=== PATIENT | female | born 1990 | race Hispanic/Latino ===

== ENCOUNTER 2017-11-18 02:40 | Inpatient (IN) | payer BC, OTHER ==
--- NOTE | 2017-11-18 02:50 | ED PDOC ---
Arrival/HPI - General Time Seen by Provider: 11/18/17 02:42 Historian: Patient, Parent - History of Present Illness Narrative History of Present Illness (Text): 11/18/17 02:50 Nicol Zamora is 27 year old female who presents to the ED brought in by elizabeth santoyo for possible overdose. Mother states she noted patient to be inebriated and may have possibly overdose on her boyfriend's Flexeril, but is unsure how many were taken by the patient. Patient states she "took a couple" because she wanted to sleep but would not elaborate further. According to collateral information obtained from mother, patient had a recent miscarriage, from her boyfriend, and has been seemingly depressed. Unknown if patient had any suicidal ideation. Limited HPI and ROS secondary to patient's altered mental status. Symptom Onset: Gradual Symptom Course: Unchanged Activities at Onset: Light Context: Home Past Medical History - Provider Review Nursing Documentation Reviewed: Yes Family/Social History - Physician Review Nursing Documentation Reviewed: Yes Family/Social History: Unknown Family HX Allergies/Home Meds Allergies/Adverse Reactions: Allergies No Known Allergies Allergy (Unverified 11/18/17 03:12) Home Medications: Home Meds Medication Instructions Recorded Confirmed Albuterol HFA [Ventolin HFA 90 1 puff INH PRN PRN 11/18/17 11/18/17 mcg/actuation (8 g)] Amphetamine Salt Combination 5 mg PO DAILY 11/18/17 11/18/17 [Adderall] Review of Systems - Review of Systems Systems not reviewed;Unavailable: Altered Mental Status Physical Exam Vital Signs Reviewed: Yes Temperature: Afebrile Blood Pressure: Normal Pulse: Regular Respiratory Rate: Normal Appearance: Positive for: Well-Appearing, Non-Toxic, Comfortable Pain Distress: None Mental Status: Positive for: other (Drowsy at times but easily arousable) - Systems Exam Head: Present: Atraumatic, Normocephalic Pupils: Present: PERRL Extroacular Muscles: Present: EOMI Conjunctiva: Present: Normal Ears: Present: Normal, NORMAL TM, Normal Canal. No: Erythema, TM Bulging, Fluid, TM Perf Mouth: Present: Moist Mucous Membranes Pharnyx: Present: Normal. No: ERYTHEMA, EXUDATE, TONSILS ENLARGED, Peritonsilar Swelling, Uvular Deviation, Muffled/Hoarse Voice, Strider, Soft Palate/Uvular Edema Nose (External): Present: Atraumatic Nose (Internal): Present: Normal Inspection Neck: Present: Normal Range of Motion. No: Meningeal Signs, MIDLINE TENDERNESS, Paraspinal Tenderness Respiratory/Chest: Present: Clear to Auscultation, Good Air Exchange. No: Respiratory Distress, Accessory Muscle Use Cardiovascular: Present: Regular Rate and Rhythm, Normal S1, S2. No: Murmurs Abdomen: No: Tenderness, Distention, Peritoneal Signs Back: Present: Normal Inspection. No: CVA Tenderness, Midline Tenderness, Paraspinal Tenderness Upper Extremity: Present: Normal Inspection. No: Cyanosis, Edema Lower Extremity: Present: Normal Inspection. No: Edema Neurological: Present: GCS=15, CN II-XII Intact, Speech Normal Skin: Present: Warm, Dry, Normal Color. No: Rashes Psychiatric: Present: Alert, Oriented x 3, Normal Insight, Normal Concentration Medical Decision Making ED Course and Treatment: 11/18/17 02:50 Impression: 27 year old female brought in s/p possible overdose and alcohol intoxication. Plan: -- EKG -- CXR -- Labs, alcohol level -- Urine drug screen -- IV fluids -- Reassess and disposition Progress Notes: Poison control contacted by RN, who recommend cardiac monitoring and repeat EKG in 2 hours to observe for QRS widening. Reviewed EKG, NSR at 95 bpm. Anterior infarct. Non-specific ST/T wave changes. 11/18/17 05:08 Case discussed with director of medical staff services long distance billing operator, who is aware and agrees with plan. 11/18/17 05:[address] Adams, who is aware and agrees to evaluate pt for ICU. 11/18/17 05:[address] Adams, present in ED, states pt can be admitted to the ICU. 11/18/17 05:[address] Jackson, covering for Dr. Alexis, who is aware and agrees with plan. Pt will be admitted to ICU for drug overdose and alcohol intoxication under Dr. Alexis's service. - EKG Interpretation Interpreted by ED Physician: Yes Type: 12 lead EKG - Scribe Statement The provider has reviewed the documentation as recorded by the Scribnathanael Mota All medical record entries made by the Scribe were at my direction and personally dictated by me. I have reviewed the chart and agree that the record accurately reflects my personal performance of the history, physical exam, medical decision making, and the department course for this patient. I have also personally directed, reviewed, and agree with the discharge instructions and disposition. Disposition/Present on Arrival - Present on Arrival Any Indicators Present on Arrival: No History of DVT/PE: No History of Uncontrolled Diabetes: No Urinary Catheter: No History of Decub. Ulcer: No History Surgical Site Infection Following: None - Disposition Have Diagnosis and Disposition been Completed?: Yes Diagnosis: Drug overdose, Alcohol intoxication Disposition: HOSPITALIZED Disposition Time: 05:17 Patient Problems: Current Active Problems Problem Status Onset Alcohol intoxication Acute Drug overdose Acute Condition: GUARDED
[2017-11-18] MEDS ORDERED: Sodium Chloride 0.9% 1,000 ML IV STA (03:06)
[2017-11-18 03:12] VITALS: BMI 26.4
[2017-11-18 04:24] LABS: ALB/GLOB RATIO 1.8 (1.1-1.8); ALT/SGPT 129 U/L (7-56); AST/SGOT 72 U/L (14-36); BLOOD UREA NITROGEN 7 mg/dL (7-21); CALCIUM 9.2 mg/dL (8.4-10.5); GFR NON-AFRICAN AMERICAN > 60
[2017-11-18 04:25] LABS: ACETAMINOPHEN < 10.0 ug/ml (10.0-20.0); SALICYLATE < 1 mg/dL (2.0-20.0)
[2017-11-18 05:07] LABS: BASO # 0.02 K/mm3 (0.0-2.0); BASO % 0.3 % (0.0-3.0); EOS % 0.6 % (1.5-5.0); GRAN # 4.14 (1.4-6.5); GRAN % 61.1 % (50.0-68.0); HEMOGLOBIN 13.3 g/dL (12.0-16.0); LYMPH # 2.2 (1.2-3.4); LYMPH % 32.5 % (22.0-35.0); MEAN CELL VOLUME 63.6 fl (80.0-105.0); MONO # 0.4 (0.1-0.6); MONO % 5.5 % (1.0-6.0); PLATELET COUNT 219 10^3/uL (120.0-450.0); RBC 6.34 10^6/uL (3.5-6.1); RED CELL DISTRIBUTION WIDTH 15.2 % (11.5-14.5); WHITE BLOOD COUNT 6.8 10^3/ul (4.5-11.0)
--- NOTE | 2017-11-18 06:26 | CP.PCM.CON ---
<Sima Bean - Last Filed: 11/18/17 07:29> History of Present Illness - History of Present Illness History of Present Illness: Sima Bean, PGY2, ICU Consult Note for Dr Adams: CC: drowsy s/p flexeril overdose 27 year old female with PMH asthma, thalassemia minor, anxiety, was brought into [facility] by mother for possible overdose of flexeril. At time of my exam, patient is drowsy and sleepy, responds to few questions. Most HPI obtained from mother at bedside, ED staff, prior chart review. As per mother, patient recently had a spontaneous 1 month ago, broke up with her boyfriend recently, went into depression. Patient was hanging out with her friends tonight at a [employer], had a lot to drink. Patient then came back home, and was in her room for some time. Patient's friends then found an empty bottle of flexeril next to her bed, and patient was drowsy. No fevers, vomiting, cough, diarrhea, leg swelling. 12 point ROS limited due to AMS. PMH: asthma, thalassemia minor, anxiety PSH: denies NKA FH: Mother, HTN Thalassemia, hemochromatosis (aunt), PCKD (aunt and uncle) SH: Works for [employer]. + ETOH (unknown amount), no smoking/recreational drug use. PMD: Reuben Review of Systems - Review of Systems Systems not reviewed;Unavailable: Altered Mental Status Past Patient History - Past Social History Smoking Status: Never Smoked - PSYCHIATRIC Hx Substance Use: No Meds Allergies/Adverse Reactions: Allergies Allergy/AdvReac Type Severity Reaction Status Date / Time apple Allergy ANGIOEDEMA Verified 11/18/17 19:23 ORANGE Allergy ANGIOEDEMA Verified 11/18/17 19:23 peach Allergy ANGIOEDEMA Verified 11/18/17 19:23 - Medications Medications: Current Medications Potassium Chloride (Potassium Chloride 10 Meq/100 Ml) 10 meq in 100 mls @ 50 mls/hr IVPB Q2H ENEDINA Stop: 11/18/17 10:14 Sodium Chloride (Sodium Chloride 0.9%) 1,000 mls @ 100 mls/hr IV .Q10H ENEDINA Physical Exam - Constitutional Additional comments: drowsy, sleepy - Head Exam Head Exam: ATRAUMATIC, NORMOCEPHALIC - Eye Exam Eye Exam: PERRL. absent: Conjunctival injection, Nystagmus, Scleral icterus Pupil Exam: PERRL. absent: Fixed, Irregular, Miosis, Mydriatic, Unequal Additional comments: patient uncooperative with exam - ENT Exam ENT Exam: Mucous Membranes Moist - Neck Exam Neck exam: Positive for: Full Rom - Respiratory Exam Respiratory Exam: Clear to Auscultation Bilateral, NORMAL BREATHING PATTERN. absent: Accessory Muscle Use, Rales, Rhonchi, Wheezes, Respiratory Distress, Stridor - Cardiovascular Exam Cardiovascular Exam: RRR, +S1, +S2. absent: Systolic Murmur - GI/Abdominal Exam GI & Abdominal Exam: Normal Bowel Sounds, Soft. absent: Distended, Firm, Guarding, Mass, Organomegaly, Rebound, Rigid, Tenderness - Extremities Exam Extremities exam: Positive for: normal inspection. Negative for: calf tenderness, pedal edema - Back Exam Back exam: NORMAL INSPECTION - Neurological Exam Neurological exam: Altered, Reflexes Normal Additional comments: drowsy, patient uncooperative with exam - Skin Skin Exam: Normal Color, Warm Results - Vital Signs Recent Vital Signs: Last Vital Signs Temp 98.2 F 11/18/17 03:00 Pulse 92 H 11/18/17 05:57 Resp 18 11/18/17 05:57 BP 109/61 11/18/17 05:57 Pulse Ox 97 11/18/17 05:57 - Labs Result Diagrams: 11/18/17 03:30 11/18/17 03:30 Labs: Laboratory Results - last 24 hr 11/18/17 11/18/17 11/18/17 03:30 03:30 03:30 WBC 6.8 RBC 6.34 H Hgb 13.3 Hct 40.3 MCV 63.6 L MCH 21.0 L MCHC 33.0 RDW 15.2 H Plt Count 219 Gran % 61.1 Lymph % (Auto) 32.5 Dougherty % (Auto) 5.5 Eos % (Auto) 0.6 L Baso % (Auto) 0.3 Gran # 4.14 Lymph # (Auto) 2.2 Dougherty # (Auto) 0.4 Eos # (Auto) 0.0 Baso # (Auto) 0.02 Sodium 142 Potassium 3.4 L Chloride 104 Carbon Dioxide 21 Anion Gap 20 BUN 7 Creatinine 0.7 Est GFR ( Amer) > 60 Est GFR (Non-Af Amer) > 60 Random Glucose 85 Calcium 9.2 Total Bilirubin 0.9 AST 72 H ALT 129 H Alkaline Phosphatase 78 Total Protein 7.8 Albumin 5.0 H Globulin 2.8 Albumin/Globulin Ratio 1.8 Beta HCG, Quant Salicylates < 1 L Acetaminophen < 10.0 L Alcohol, Quantitative 11/18/17 11/18/17 03:30 03:30 WBC RBC Hgb Hct MCV MCH MCHC RDW Plt Count Gran % Lymph % (Auto) Dougherty % (Auto) Eos % (Auto) Baso % (Auto) Gran # Lymph # (Auto) Dougherty # (Auto) Eos # (Auto) Baso # (Auto) Sodium Potassium Chloride Carbon Dioxide Anion Gap BUN Creatinine Est GFR ( Amer) Est GFR (Non-Af Amer) Random Glucose Calcium Total Bilirubin AST ALT Alkaline Phosphatase Total Protein Albumin Globulin Albumin/Globulin Ratio Beta HCG, Quant 88.39 H Salicylates Acetaminophen Alcohol, Quantitative 179 H Assessment & Plan - Assessment and Plan (Free Text) Assessment: 27 year old female with no significant PMH, presents s/p flexeril overdose: Neuro: - drowsy, answers few questions. - Neuro checks, seizure precautions, aspiration precautions - ETOH level elevated, negative for tylenol/salicylates - CIWA protocol. Currently agitated. Can initiate ativan once patient awake. - UDS ordered - Poison control contacted, wants EKG done q4 hours x1 (watch for QRS widening), telemetry monitoring. - Psych consulted. F/u recs. - 1:1 sitter - Monitor - avoid sedatives Resp: - On RA. Maintain sats>96%. - Hx of asthma. Duonebs prn. Cardio: - HR 90s, BP 109/61 - Received 1 L NS bolus in ED - NS@100 GI: NPO. Protonix daily. Elevated LFTs. likely alcohol induced. Renal: BUN/Cr 7/0.7. Hypokalemic 3.4, repleted. Maintain euvolemia, replace lytes. ID: afebrile, no leukocytosis. monitor. PPX: Protonix, SCDs Case discussed with Dr Adams. <Mingo Adams - Last Filed: 11/18/17 21:22> Meds - Medications Medications: Current Medications Albuterol/Ipratropium (Duoneb 3 Mg/0.5 Mg (3 Ml) Ud) 3 ml IH [id number] PRN PRN Reason: Wheezing Folic Acid (Folic Acid) 1 mg IVP DAILY [facility] Last Admin: 11/18/17 10:31 Dose: 1 mg Sodium Chloride (Sodium Chloride 0.9%) 1,000 mls @ 100 mls/hr IV .Q10H ENEDINA Last Admin: 11/18/17 17:21 Dose: 100 mls/hr Lorazepam (Ativan) 1 mg IVP Q6H PRN; Protocol PRN Reason: Symptoms of alcohol withdrawl Pantoprazole Sodium (Protonix Inj) 40 mg IVP DAILY [facility] Last Admin: 11/18/17 10:07 Dose: 40 mg Thiamine HCl (Vitamin B1 Inj) 100 mg IM DAILY [facility] Results - Vital Signs Recent Vital Signs: Last Vital Signs Temp 98.0 F 11/18/17 16:30 Pulse 81 11/18/17 20:00 Resp 20 11/18/17 20:00 BP 119/71 11/18/17 20:00 Pulse Ox 99 11/18/17 20:00 - Labs Result Diagrams: 11/18/17 08:30 11/18/17 08:30 Labs: Laboratory Results - last 24 hr 11/18/17 11/18/17 11/18/17 03:30 03:30 03:30 WBC 6.8 RBC 6.34 H Hgb 13.3 Hct 40.3 MCV 63.6 L MCH 21.0 L MCHC 33.0 RDW 15.2 H Plt Count 219 MPV Gran % 61.1 Lymph % (Auto) 32.5 Dougherty % (Auto) 5.5 Eos % (Auto) 0.6 L Baso % (Auto) 0.3 Gran # 4.14 Lymph # (Auto) 2.2 Dougherty # (Auto) 0.4 Eos # (Auto) 0.0 Baso # (Auto) 0.02 Sodium 142 Potassium 3.4 L Chloride 104 Carbon Dioxide 21 Anion Gap 20 BUN 7 Creatinine 0.7 Est GFR ( Amer) > 60 Est GFR (Non-Af Amer) > 60 Random Glucose 85 Calcium 9.2 Phosphorus Magnesium Total Bilirubin 0.9 AST 72 H ALT 129 H Alkaline Phosphatase 78 Total Protein 7.8 Albumin 5.0 H Globulin 2.8 Albumin/Globulin Ratio 1.8 Beta HCG, Quant Salicylates < 1 L Urine Opiates Screen Urine Methadone Screen Acetaminophen < 10.0 L Ur Barbiturates Screen Ur Phencyclidine Scrn Ur Amphetamines Screen U Benzodiazepines Scrn U Oth Cocaine Metabols U Cannabinoids Screen Alcohol, Quantitative 11/18/17 11/18/17 11/18/17 03:30 03:30 06:50 WBC RBC Hgb Hct MCV MCH MCHC RDW Plt Count MPV Gran % Lymph % (Auto) Dougherty % (Auto) Eos % (Auto) Baso % (Auto) Gran # Lymph # (Auto) Dougherty # (Auto) Eos # (Auto) Baso # (Auto) Sodium Potassium Chloride Carbon Dioxide Anion Gap BUN Creatinine Est GFR ( Amer) Est GFR (Non-Af Amer) Random Glucose Calcium Phosphorus Magnesium Total Bilirubin AST ALT Alkaline Phosphatase Total Protein Albumin Globulin Albumin/Globulin Ratio Beta HCG, Quant 88.39 H Salicylates Urine Opiates Screen Negative Urine Methadone Screen Negative Acetaminophen Ur Barbiturates Screen Negative Ur Phencyclidine Scrn Negative Ur Amphetamines Screen Positive H U Benzodiazepines Scrn Negative U Oth Cocaine Metabols Negative U Cannabinoids Screen Negative Alcohol, Quantitative 179 H 11/18/17 11/18/17 08:30 08:30 WBC 5.0 D RBC 5.77 Hgb 12.0 Hct 37.0 MCV 64.1 L MCH 20.8 L MCHC 32.4 RDW 15.3 H Plt Count 211 MPV 9.9 Gran % 52.6 Lymph % (Auto) 37.7 H Dougherty % (Auto) 8.5 H Eos % (Auto) 1.0 L Baso % (Auto) 0.2 Gran # 2.61 Lymph # (Auto) 1.9 Dougherty # (Auto) 0.4 Eos # (Auto) 0.1 Baso # (Auto) 0.01 Sodium 142 Potassium 3.6 Chloride 107 Carbon Dioxide 25 Anion Gap 14 BUN 7 Creatinine 0.7 Est GFR ( Amer) > 60 Est GFR (Non-Af Amer) > 60 Random Glucose 76 Calcium 8.6 Phosphorus 4.4 Magnesium 2.1 Total Bilirubin 0.7 AST 71 H ALT 124 H Alkaline Phosphatase 63 Total Protein 6.7 Albumin 4.2 Globulin 2.5 Albumin/Globulin Ratio 1.7 Beta HCG, Quant Salicylates Urine Opiates Screen Urine Methadone Screen Acetaminophen Ur Barbiturates Screen Ur Phencyclidine Scrn Ur Amphetamines Screen U Benzodiazepines Scrn U Oth Cocaine Metabols U Cannabinoids Screen Alcohol, Quantitative Attending/Attestation - Attestation I have personally seen and examined this patient.: Yes I have fully participated in the care of the patient.: Yes I have reviewed all pertinent clinical information: Yes Notes (Text): 11/18/17 21:21 Patient was seen when she was in the ER. History obtained from mother. Medical record was reviewed. Agree with history, physical examination, assessment and plan.
[2017-11-18] MEDS ORDERED: Albuterol-Ipratrop 3 mg / 0.5 (3 ml) UD IH PRN (06:45)
[2017-11-18] MEDS: Sodium Chloride 0.9% 1,000 ML IV SCH ×2 (06:57→17:21)
[2017-11-18] MEDS ORDERED: Thiamine 100 mg/ml Inj IM STA (07:12)
[2017-11-18 07:39] LABS: BARBITURATES, UR NEGATIVE (NEGATIVE); BENZODIAZEPINES, UR NEGATIVE (NEGATIVE); OPIATES, UR NEGATIVE (NEGATIVE); PHENCYCLIDINE, UR NEGATIVE (NEGATIVE)
[2017-11-18 08:47] LABS: BASO # 0.01 K/mm3 (0.0-2.0); BASO % 0.2 % (0.0-3.0); EOS # 0.1 (0.0-0.7); GRAN # 2.61 (1.4-6.5); GRAN % 52.6 % (50.0-68.0); LYMPH # 1.9 (1.2-3.4); LYMPH % 37.7 % (22.0-35.0); MEAN CELL VOLUME 64.1 fl (80.0-105.0); MEAN CORPUSCULAR HEMOGLOBIN 20.8 pg (25.0-35.0); MEAN CORPUSCULAR HGB CONC 32.4 g/dl (31.0-37.0); MEAN PLATELET VOLUME 9.9 fl (7.0-11.0); MONO # 0.4 (0.1-0.6); MONO % 8.5 % (1.0-6.0); RBC 5.77 10^6/uL (3.5-6.1); RED CELL DISTRIBUTION WIDTH 15.3 % (11.5-14.5)
[2017-11-18 09:04] LABS: ALB/GLOB RATIO 1.7 (1.1-1.8); ALBUMIN 4.2 g/dL (3.0-4.8); ALT/SGPT 124 U/L (7-56); AST/SGOT 71 U/L (14-36); BLOOD UREA NITROGEN 7 mg/dL (7-21); CALCIUM 8.6 mg/dL (8.4-10.5); GFR NON-AFRICAN AMERICAN > 60
--- NOTE | 2017-11-18 09:12 | CARD ---
APPROVED REPORT Date of service: 11/18/2017 EKG Measurement Heart [id number] [id number] <Conclusion> Sinus rhythm Limb lead reversal and artifact V 3 - 6 Suggest repeat ECG
--- NOTE | 2017-11-18 09:16 | CARD ---
APPROVED REPORT Date of service: 11/18/2017 EKG Measurement Heart [id number] <Conclusion> Normal sinus rhythm PRWP V 1 - 3. Could be lead positioning. Mild QTc prlongation
--- NOTE | 2017-11-18 10:37 | CP.PCM.PCO ---
Addendum Addendum: I attempted to interview patient at bedside this morning however despite multiple efforts by this provider (as well as nursing), patient is too sedated to participate in an interview. This food consultant will re-attempt evaluation in the AM tomorrow 11/19/17. 11/18/17 10:36
--- NOTE | 2017-11-18 12:10 | PN ---
DATE: 11/18/2017 TELEPHONE ASSEMBLER NOTE LOCATION: At [facility]. SUBJECTIVE: The patient is resting with various bouts of irritation at times. She is awake and alert. No complaints of shortness of breath, cough, wheezing, chest congestion. No fever, chills, nausea or vomiting. No abdominal pain. No diarrhea. The patient presented with altered mental status, initially felt to have had a Flexeril overdose and is noted on labs to have been amphetamine positive. PHYSICAL EXAMINATION: VITAL SIGNS: Physical exam note that her temperature is 98.7, her pulse is 94, respirations are 14 and BP is 105/65. SKIN: Warm and dry. HEENT: Head atraumatic, normocephalic. Eyes reactive to light. Ears, nose and throat seemed to be within normal limits. NECK: Supple. No JVD. No thyroid enlargement. No lymph nodes. HEART: Regular rate and rhythm. Normal S1 and S2. LUNGS: Reveals good breath sounds bilaterally. ABDOMEN: Soft, nontender. Normal bowel sounds. No organomegaly noted. GENITALIA AND Rectal: Deferred. MUSCULOSKELETAL: No joint deformities. EXTREMITIES: Reveal no significant lower extremity edema. NEUROLOGICAL: She seemed to be grossly intact. LABORATORY DATA: As far as her laboratories are concerned, her white count is 5, hemoglobin is 12, hematocrit 37 with platelets of 211,000. Sodium is 142, potassium 3.6, chloride 107, CO2 of 25, BUN of 7, creatinine of 0.7 and a glucose of 76. Toxicology reveals that there is alcohol quantitative level of 179, which is high and she is positive for amphetamines. IMPRESSION: As far as my impression, this patient presents with altered mental status and drug overdose, possible Flexeril overdose. It is noted that she is positive for and alcohol. She has a history of ethyl alcohol abuse and also noted anxiety and depression history as well. The patient also carries a diagnosis of asthma and note that her test is positive. The patient did give a history of recently having a miscarriage approximately a month or so ago. PLAN: As far as our plan, we will continue with one-to-one observation. The patient is on Ativan as well as DuoNeb and is getting Protonix as well as folic acid and thiamine. She is on IV solution as well. The patient will be treated aggressively along with the other consultants and the primary care doctor. Tha Shultz MD [facility] # [id number]
--- NOTE | 2017-11-18 13:35 | RAD ---
Date of service: 11/18/2017 HISTORY: medical clearance COMPARISON: No prior. FINDINGS: LUNGS: No active pulmonary disease. PLEURA: No significant pleural effusion identified, no pneumothorax apparent. CARDIOVASCULAR: Normal. OSSEOUS STRUCTURES: No significant abnormalities. VISUALIZED UPPER ABDOMEN: Normal. OTHER FINDINGS: None. IMPRESSION: No active disease.
--- NOTE | 2017-11-18 14:14 | US ---
Date of service: 11/18/2017 HISTORY: elevated lfts COMPARISON: None. TECHNIQUE: Sonographic evaluation of the abdomen. FINDINGS: LIVER: Measures 13.3 cm. Hepatopedal blood flow. Fatty infiltration manifest ultrasonographically as increased echogenicity of the liver parenchyma. No mass. No intrahepatic bile duct dilatation. GALLBLADDER: Unremarkable. No gallstones. COMMON BILE DUCT: Measures 2.1 mm. No stones. No dilatation. PANCREAS: Obscured by overlying bowel gas. Non diagnostic assessment of the pancreas RIGHT KIDNEY: Measures 3.8 x 9.5cm. Normal echogenicity. No calculus, mass, or hydronephrosis. LEFT KIDNEY: Measures 5.1 x 9.7cm. Normal echogenicity. No calculus, mass, or hydronephrosis. SPLEEN: Normal in size and contour. No mass. AORTA: No aneurysmal dilatation. IVC: Unremarkable. OTHER FINDINGS: None. IMPRESSION: No significant or acute findings to account for/ related to the clinical presentation. Additional benign and/or incidental findings described above. Limitations of the current examination: Nondiagnostic assessment of the pancreas.
--- NOTE | 2017-11-18 15:18 | US ---
Date of service: 11/18/2017 PROCEDURE: Limited ultrasound HISTORY: hcg 88 COMPARISON: None TECHNIQUE: Standard protocol for this study/examination. FINDINGS: Gestational sac composite measuring 1.05 cm corresponds to gestational age of 5 weeks 1 day. No yolk sac or pole identified. Uterus 4.2 x 4.8 x 6.9 cm. Closed cervix 3.19 cm. Right ovary 3.1 x 2.7 x 3.2 cm. Simple cyst 1.2 x 1.4 x 1.7 cm. Left ovary 1.7 x 2.9 x 3.6 cm. IMPRESSION: Saclike structure within the endometrium likely early products of conception. No yolk sac or pole identified. Simple cyst right ovary.
[2017-11-19] MEDS: Sodium Chloride 0.9% 1,000 ML IV SCH ×2 (03:14→14:45)
[2017-11-19 06:19] LABS: BASO # 0.01 K/mm3 (0.0-2.0); BASO % 0.2 % (0.0-3.0); EOS # 0.1 (0.0-0.7); EOS % 2.3 % (1.5-5.0); GRAN # 3.15 (1.4-6.5); HEMOGLOBIN 11.9 g/dL (12.0-16.0); LYMPH # 1.6 (1.2-3.4); LYMPH % 30.2 % (22.0-35.0); MEAN CELL VOLUME 65.1 fl (80.0-105.0); MEAN CORPUSCULAR HEMOGLOBIN 20.4 pg (25.0-35.0); MEAN CORPUSCULAR HGB CONC 31.4 g/dl (31.0-37.0); MEAN PLATELET VOLUME 10.2 fl (7.0-11.0); MONO # 0.4 (0.1-0.6); MONO % 8.3 % (1.0-6.0); RBC 5.82 10^6/uL (3.5-6.1); RED CELL DISTRIBUTION WIDTH 15.3 % (11.5-14.5); WHITE BLOOD COUNT 5.3 10^3/ul (4.5-11.0)
[2017-11-19 07:09] LABS: ALB/GLOB RATIO 1.5 (1.1-1.8); ALBUMIN 3.7 g/dL (3.0-4.8); ALT/SGPT 105 U/L (7-56); AST/SGOT 52 U/L (14-36); BLOOD UREA NITROGEN 9 mg/dL (7-21); CALCIUM 8.9 mg/dL (8.4-10.5); GFR NON-AFRICAN AMERICAN > 60
[2017-11-19 08:54] LABS: HEPATITIS B SURFACE AG Negative (NEGATIVE)
--- NOTE | 2017-11-19 08:56 | CARD ---
APPROVED REPORT Date of service: 11/18/2017 EKG Measurement Heart [id number] <Conclusion> Normal sinus rhythm Peaked l T waves
[2017-11-19 09:00] LABS: HEPATITIS A IGM NEGATIVE (NEGATIVE); HEPATITIS B CORE AB NEGATIVE (NEGATIVE)
[2017-11-19 09:11] LABS: HEPATITIS C ANTIBODY NEGATIVE (NEGATIVE)
[2017-11-19] MEDS ORDERED: Thiamine 100 mg/ml Inj IM SCH (10:00)
--- NOTE | 2017-11-19 10:07 | PN ---
DATE: 11/19/2017 COMPRESSOR MECHANIC NOTE SUBJECTIVE: The patient is resting in bed, very comfortable. No irritation this morning, awake, and alert. No shortness of breath, cough, wheezing, or chest congestion. The patient has been seen by Psychiatry and has been taken off of one-to-one observation. PHYSICAL EXAMINATION: VITAL SIGNS: Notes that her temperature is 98, pulse is 69, respirations of 20, and BP is 119/71. SKIN: Warm and dry. HEENT: Head atraumatic, normocephalic. Eyes reactive to light. Ears, nose, and throat seemed to be within normal limits. NECK: Supple. No JVD. No thyroid enlargement. No lymph nodes. HEART: Has regular rate and rhythm. Normal S1, S2. LUNGS: Reveal good breath sounds bilaterally. ABDOMEN: Soft, nontender. Normal bowel sounds. No organomegaly noted. GENITALIA: Deferred. RECTAL: Deferred. MUSCULOSKELETAL: No joint deformities. EXTREMITIES: Reveal no significant edema. NEUROLOGIC: She seemed to be grossly intact. LABORATORY DATA: As far as her laboratories are concerned, her white count is 5.3, hemoglobin is 11.9, hematocrit 37.9 with platelets of 197,000. Her sodium is 138, potassium 4, chloride 107, CO2 of 29 with a BUN of 9, creatinine of 0.7, and a glucose of 82. Her liver enzymes are mildly elevated. Note that the patient has a positive beta hCG quantitative and noticed that the ultrasound reveals fat-like structure within the endometrium, likely early products of conception. No yolk sac or pole identified. IMPRESSION: The patient presents with drug overdose, noted to have amphetamines as far as drug tox is concerned. The patient is also positive for alcohol. She has a history of anxiety and depression and asthma. The patient's test is positive and ultrasound shows that she is . PLAN: We will continue with DuoNeb, Protonix, and folic acid and thiamine and the patient is getting IV fluids. She is stable and will be transferred to the general medical floor. Tha Shultz MD
[2017-11-19 16:37] LABS: URINE BILIRUBIN NEGATIVE (NEGATIVE); URINE BLOOD NEGATIVE (NEGATIVE); URINE GLUCOSE (UA) NEGATIVE (NEGATIVE); URINE LEUKOCYTE ESTERASE TRACE Leu/uL (NEGATIVE); URINE PROTEIN NEGATIVE mg/dL (<30 mg/dL); URINE UROBILINOGEN 0.2 E.U./dL (<1 E.U./dL)
[2017-11-19 16:39] LABS: URINE APPEARANCE CLEAR (CLEAR); URINE COLOR YELLOW (YELLOW)
[2017-11-19 16:53] LABS: BARBITURATES, UR NEGATIVE (NEGATIVE); BENZODIAZEPINES, UR NEGATIVE (NEGATIVE); OPIATES, UR NEGATIVE (NEGATIVE); PHENCYCLIDINE, UR NEGATIVE (NEGATIVE)
[2017-11-19 19:04] LABS: URINE BACTERIA FEW (NEG); URINE RBC NEGATIVE /hpf (0-2)
--- NOTE | 2017-11-19 21:14 | PN ---
DATE: 11/19/2017 SUBJECTIVE: The patient is 27 years old, seen and examined. She is fully awake, alert, oriented, communicative, sitting in chair, eating and tolerating. PHYSICAL EXAMINATION: VITAL SIGNS: She is afebrile, pulse 83, respirations 22, blood pressure 135/68. LUNGS: Bilateral fair airflow. No rhonchi or crackle. HEART: S1, S2 audible. ABDOMEN: Soft, nontender. No rebound, no guarding. NEUROLOGIC: She is awake, alert, oriented and communicative. LABORATORY DATA: WBC is 5.3, hemoglobin 11.9, hematocrit 37.9, platelet of 197. Chemistry: Sodium 138, potassium 4, chloride 107, CO2 of 26, BUN 9, creatinine 0.7. Blood sugar is 82. Her hCG is positive, amphetamine positive. ASSESSMENT: 1. Status post Flexeril overdose. 2. Amphetamine abuse. 3. Alcohol abuse. 4. Questionable suicidal attempt after she broke with her . 5. Probably retained . PLAN: I discussed with the patient. She is not actively having vaginal bleeding. She will follow up with her TEACHER SPECIALIST for possible D&C later on. The patient is medically and hemodynamically stable, can be transferred to med-surg unit. The patient expressed the wish to go home, I will leave it up to the psychiatrist if she is stable from psychological point of view to be discharged and decision will be made. The patient either has to go to psych unit for observation that will be decided after the psychiatrist discuss with the patient. Jules Jackson MD
--- NOTE | 2017-11-19 23:16 | CON ---
DATE: 11/19/2017 HISTORY OF PRESENT ILLNESS: The patient is a single 27-year-old female with a history of depression, anxiety, and attention deficit disorder, no reported history of psychiatric hospitalization, currently in psychiatric treatment with Dr. Cordero and prescribed Vyvanse 50 mg daily, who was brought to the ER by her mother status post overdose on her ex-boyfriend's Flexeril. Apparently, the patient communicated with her mother at some point after the overdose and told her about what she did, prompting her mother to bring her daughter to [facility] from [facility]. I spoke with the patient at bedside this morning and the patient indicated that she has been depressed for a while and her depression worsened considerably after she suffered a miscarriage last month, and then subsequently had a mutual breakup with her boyfriend of 3 years approximately a couple of weeks ago. The patient has been tearful with low energy, low mood, not sleeping, crying spells, and easily overwhelmed. The patient admits that she did take her ex-boyfriend's Flexeril; however, does not know how much pills she took; indicated that a handful; she said there was at least 10. The patient is not forthcoming about why she took the pills except stating that she did want to go to sleep. However, it appears that the mother was concerned that the patient was actually trying to kill herself. At this time, the patient denies wanting to . She does appear depressed, apathetic; however, she is not labile or out of control, and her responses are coherent and relevant to questioning. There has been no evidence of psychotic process on the unit either. The patient is also well oriented to current circumstances. Her insight and judgment are considered to be fair. PSYCHIATRIC HISTORY: The patient reports no prior psychiatric hospitalizations, does report psychiatric outpatient treatment years ago for depression with antidepressants; however, has not had screen for this thus far, so she has not tried any antidepressants since then. The patient has been in psychiatric treatment with Dr. Cordero over the last approximately 4 years, and was prescribed Vyvanse 50 mg deficit, and she is supposed to therapist prior to her presentation. The patient denies any prior suicide attempt. SOCIAL HISTORY: The patient was born and raised in [place]. She is single. She has no children. She lives with her mother, 35-year-old sister and her 11-year-old nephew. She worked full-time for the last 2 years in [employer] . She graduated high school. She denies any drug or alcohol issues. Labs and vital signs were reviewed. MEDICATIONS: The patient is not currently taking any psychiatric medications except for the Ativan 1 mg IV every 6 p.r.n. IMPRESSION: Major depressive disorder, adjustment disorder with depressive traits. RECOMMENDATIONS: 1. At this time, the patient is agreeable to start Prozac 10 mg daily for depression and anxiety. I have reviewed therapeutic latency, possible side effects of the medication, as well as dosing. 2. I recommend the patient be psychiatrically hospitalized to ensure her stability; however, the patient is very about this recommendation. We will continue to try to elicit her cooperation. 3. I will discontinue Ativan from the patient's medication as it does appear that the patient might be again. Prozac is generally safe for . 4. contact with mother regarding her current hospitalization. 5. Psychiatry will continue to follow the patient and monitor her progress. Ramila Rincon MD
[2017-11-20] MEDS ORDERED: Pantoprazole 40 mg EC Tab PO SCH (06:00)
[2017-11-20 07:18] LABS: BASO # 0.01 K/mm3 (0.0-2.0); BASO % 0.2 % (0.0-3.0); EOS # 0.1 (0.0-0.7); EOS % 1.9 % (1.5-5.0); GRAN % 57.2 % (50.0-68.0); LYMPH # 1.8 (1.2-3.4); LYMPH % 33.3 % (22.0-35.0); MEAN CELL VOLUME 64.8 fl (80.0-105.0); MEAN CORPUSCULAR HEMOGLOBIN 20.5 pg (25.0-35.0); MEAN CORPUSCULAR HGB CONC 31.6 g/dl (31.0-37.0); MEAN PLATELET VOLUME 10.3 fl (7.0-11.0); MONO # 0.4 (0.1-0.6); MONO % 7.4 % (1.0-6.0); RBC 5.86 10^6/uL (3.5-6.1); RED CELL DISTRIBUTION WIDTH 15.2 % (11.5-14.5); WHITE BLOOD COUNT 5.3 10^3/ul (4.5-11.0)
[2017-11-20 07:48] LABS: ALB/GLOB RATIO 1.4 (1.1-1.8); ALBUMIN 3.7 g/dL (3.0-4.8); ALT/SGPT 93 U/L (7-56); AST/SGOT 39 U/L (14-36); BLOOD UREA NITROGEN 6 mg/dL (7-21); CALCIUM 8.9 mg/dL (8.4-10.5); GFR NON-AFRICAN AMERICAN > 60
--- NOTE | 2017-11-20 08:27 | HP ---
Covering for Dr. Alexis. HISTORY OF PRESENT ILLNESS: The patient is a 27-year-old white female, seen and examined in ICU. The patient is sleepy, but arousable. Very poor historian because of being drowsy. Information got from resident and the patient herself that as per mom recently she has been going through a lot. She broke up with her boyfriend. The patient states she had in 07/2017 and since then she has been feeling very depressed. The patient went to her friend's house, who noted that the patient took a couple of Flexeril because her bottle was empty next to her bed. So friend called ambulance and she was brought to emergency room. PAST MEDICAL HISTORY: She has significant past medical history of, 1. Bronchial asthma. 2. Thalassemia minor. 3. Anxiety disorder. ALLERGIES: SHE IS NOT ALLERGIC TO ANY MEDICATION. MEDICATIONS AT HOME: She states she takes Adderall once in a while. SOCIAL HISTORY: She works in [employer] and she also goes to [employer]. She denies smoking; however, does admit drinking. PHYSICAL EXAMINATION: GENERAL: She is sleepy, but arousable. VITAL SIGNS: The patient is afebrile, pulse 85, respirations 17, blood pressure 111/74. LUNGS: Bilateral good airflow. No rhonchi or crackle. HEART: S1 and S2 audible. ABDOMEN: Soft. Nontender. No rebound. No guarding. NEUROLOGICAL: She is sleepy, but arousable. LABORATORY EXAM: WBC 5, hemoglobin 12, hematocrit 37, platelet 211. Chemistry: Sodium 142, potassium 3.6, chloride 107, CO2 of 25, BUN 7, creatinine 0.7, blood sugar 76, AST 74, ALT 124, beta hCG is 88.39. Urine tox positive for alcohol and amphetamine. Her hCG is positive, 88.39. The patient has ultrasound done, which shows sac-like structure within the endometrium, likely early product of conception. No yolk sac or pole identified. Simple ovarian cyst. ASSESSMENT: 1. Status post Flexeril overdose, status post alcohol abuse. 2. Stimulant abuse. 3. Recent with positive hCG. PLAN: We will keep the patient on IV fluid. We will keep her on thiamine and Protonix. She will have serial EKG. We will follow up her electrolytes in the a.m. Jules Jackson MD [facility] # [phone]
[2017-11-20] MEDS: Sodium Chloride 0.9% 1,000 ML IV SCH (08:32)
--- NOTE | 2017-11-20 09:27 | CARD ---
APPROVED REPORT Date of service: 11/19/2017 EKG Measurement Heart [id number] <Conclusion> Normal sinus rhythm T waves less peaked and normal QTC c/w ECG 11/18/17
--- NOTE | 2017-11-20 10:35 | PN ---
DATE: 11/20/2017 SUBJECTIVE: A 27-year-old white female, history of anxiety disorder in the past, GI disturbances in the past. The patient was admitted to ICU for the last several days after a possible overdose, alcohol and Flexeril. The patient recently admits that she had a miscarriage, which caused some emotional trauma and recently gone out and had excessive amounts of alcohol and took some of her muscle relaxants, Flexeril and was brought by the family to the hospital because of change in mental status and disorientation. The patient spent the last 24-48 hours in the ICU. She is seen on the floor today. She is awake and alert and oriented. She is understanding of what happened to her. She is truthful in what she did emotional also of what happened. 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 She did have some hormonal changes from a recent miscarriage. She would like to talk to Psych. PHYSICAL EXAMINATION GENERAL: This is a well-developed, well-nourished white female, in no apparent distress. CHEST: Clear to auscultation and percussion. ABDOMEN: Benign. HEART: Regular sinus rhythm. EXTREMITIES: Without cyanosis, clubbing or edema. VITAL SIGNS: She is afebrile at 98.1, blood pressure of 100/61. LABORATORY DATA: Unremarkable. BUN and creatinine are stable. There is no white count. ASSESSMENT AND PLAN: We will await consultation by Dr. Arrington for possible discharge home if she is comfortable with the patient and to provide outpatient services. We will continue her medications including Prozac, thiamine and propranolol and folic acid. Normal diet. Continue observation until seen by Psychiatry. Eugene Alexis MD
[2017-11-20 13:22] VITALS: BP 124/88; PULSE 84; RESP 18; TEMP 98.4; O2SAT 100
--- NOTE | 2017-11-20 22:14 | PN ---
DATE: 11/20/2017 SUBJECTIVE: The patient was seen and examined. The patient initially was seen by Dr. Ramila Rincon, who recommended psych admission for depression as well as possible status post suicidal attempt. The patient was seen in followup today. The patient was willing to get treatment. The patient reported that she was feeling depressed and hopeless. The patient reported that she was feeling overwhelmed. The patient reported that she was coping with loss of her by blaming herself. The patient might benefit from admission to the Psychiatric Inpatient Unit. From the medical standpoint, the patient is cleared for transfer. The patient signed consent for admission and would be transferred to the Psychiatric Inpatient Unit. The patient will be transferred to the Psychiatric Inpatient Unit for further evaluation and stabilization. The medications were confirmed by the patient's pharmacy. [facility] [address], #[phone]. The patient was on Xanax 0.25 mg twice a day, Vyvanse was 50 mg daily. The patient was on Lamictal 100 mg daily and 25 mg twice a day. The patient was on Adderall 200 mg twice a day. Last time, the patient filled that medication was on 10/11/2017. The patient also filled medication on 10/05/2017, Topamax 50 mg twice a day. In regards of vital signs, vital signs seems to be stable. Temperature 98.4, pulse is 84, blood pressure 124/88, respirations 18, oxygen saturation is 100. Medications reviewed. The patient is on Prozac, folic acid, Protonix and vitamin B1. Labs reviewed. Beta human chorionic gonadotropin was 88.39 was on 11/18/2017, but it is trending down. On 11/19/2017, it was 76.92. We will monitor if the patient is or not. MENTAL STATUS EXAM: The patient presented to be depressed, tearful during the interview, intermittent eye contact. Mood described as depressed and anxious. Affect was sad, tearful, mood congruent. Thought process seems to be coherent and goal directed. Thought content, the patient denied visual, auditory, tactile hallucinations. Denied paranoid ideation. The patient contracted for safety. Denied thoughts of harming herself or others, but obviously the patient needs to have help for her symptoms and the patient most likely is status post impulsive act. IMPRESSION: Rule out major depressive disorder, rule out adjustment disorder with depressed and anxious mood. The patient is status post overdose on Flexeril which belongs to her boyfriend. The patient obviously needs to have support and further observation and stabilization. PLAN: The patient was willing to get treatment. The patient was willing to be transferred to the Psychiatric Inpatient Unit. Prozac was started by Dr. Rincon. In regards of Topamax, in regards of Lamictal, those medications will be on hold and Vyvanse will be also on hold. Collateral information needs to be obtained from the patient's mother. We will transfer the patient for further evaluation and stabilization. Thank you very much for letting me participate in the care of your patient. Should they have any questions, give me a call back. Nury Zendejas MD
== END 2017-11-20 20:37 | DRG 918 ==
LOC: ED 02:40 → ERH 05:18 → CCU 07:16 → 5RNO 11-20 09:45
PROVIDERS: ADMIT Internal Medicine; ATTEND Internal Medicine
DX: T48.1X1A Poisoning by skeletal muscle relaxants [neuromuscular blocking agents], accidental (unintentional), initial encounter (principal); F10.129 Alcohol abuse with intoxication, unspecified; D56.3 Thalassemia minor; E87.6 Hypokalemia; F15.10 Other stimulant abuse, uncomplicated; J45.909 Unspecified asthma, uncomplicated; F32.9 Major depressive disorder, single episode, unspecified; F43.21 Adjustment disorder with depressed mood; F41.9 Anxiety disorder, unspecified; Y90.6 Blood alcohol level of 120-199 mg/100 ml; Z82.49 Family history of ischemic heart disease and other diseases of the circulatory system

== ENCOUNTER 2017-11-20 20:37 | Inpatient (IN) | payer BC ==
[2017-11-20 21:59] VITALS: BMI 25.7
[2017-11-20 22:48] VITALS: O2SAT 100
--- NOTE | 2017-11-21 03:43 | PCM.BM ---
<Agustin Espinoza - Last Filed: 11/21/17 03:40> Treatment Plan Problems - Problems identified on initial assessmt Hopelessness/Helplessness Date Initiated: 11/21/17 Time Initiated: 03:40 Assessment reference: NA Status: Active Ineffective Coping Date Initiated: 11/21/17 Time Initiated: 03:41 Assessment reference: NA Status: Active Social Isolation Date Initiated: 11/21/17 Time Initiated: 03:41 Assessment reference: NA Status: Active Medication Nonadherence Date Initiated: 11/21/17 Time Initiated: 03:41 Assessment reference: NA Status: Active Treatment assets and liabiliti Patient Assests: adapts well, cooperative, educated, self-reliant, ADL independent, physically healthy, negotiates basic needs, financial stabiity, cognitively intact Patient Liabilities: poor support system, relationship conflicts - Milieu Protocol Maintain good personal hygiene: daily Encourage regular showers, daily Remind patient to perform daily oral care, daily Assist patient to perform ADL's Conduct patient checks and document Observation sheet: Q15 minutes Maintain personal safety: every shift Educate patient to report safety concerns to staff, every shift Monitor environment for contraband/sharps Medication safety: Monitor for expected outcome, potential side effects: every shift, Assess barriers to learning: every shift, Assess readiness for medication education: every shift Discharge/Continuing Care - Education Needs Education Needs: Patient Medication, Patient Diagnosis/Disease Process, Patient Coping Skills, Patient Community resources, Patient Activities of Daily Living, Patient Health Practices/Safety, Patient Aftercare Safety Plan - Discharge Discharge Criteria: Tolerates medication w/o severe side effects, Free of Suicidal thoughts, Normal sleep pattern, Ability to care for self, Reduction of target symptoms <Nury Zendejas - Last Filed: 11/21/17 15:44> - Diagnosis (1) MDD (major depressive disorder) Status: Acute Interventions: 11/21/17 15:44 Psychoeducation Psychopharmacology/adjustment of medications as needed/ monitoring possible side effects Evaluate pt on daily basis Compliance with medications and follow up appointments Suicide and homicide risk assessment and prevention Relapse prevention Reduction of symptoms Improve functional status Family involvement As outpatient: cognitive behavioral therapy <Maryan Ramsay - Last Filed: 11/22/17 14:10>
[2017-11-21 07:32] VITALS: RESP 20
[2017-11-21 08:25] LABS: GLUCOSE,FASTING 85 mg/dL (65-110); HDL CHOLESTEROL 51 mg/dL (29-60)
[2017-11-21 08:36] LABS: LDL CHOLESTEROL 79 mg/dL (0-129)
--- NOTE | 2017-11-21 08:57 | CON ---
DATE: 11/21/2017 HISTORY OF PRESENT ILLNESS: A 27-year-old white female who was initially admitted to [facility] after a drug overdose and change in mental status. The patient had been drinking and taking Flexeril. Recently had a miscarriage. The patient was seen on the floor by Dr. Arrington for Psychiatry and the patient was voluntarily admitted to the Psych Unit. The patient was seen in the Psych Unit in room 519 this morning. She is awake and alert, but asking to sign herself out. I encouraged the patient to have a conversation with Dr. Arrington this morning. She does not feel that she needs to be in this facility at this time. She is awake and alert and she she has no ill effects from her recent overdose of alcohol and Flexeril. Vital signs are stable. PHYSICAL EXAMINATION: Physical examination is unchanged. CHEST: Clear to auscultation and percussion. HEART: Regular sinus rhythm. EXTREMITIES: Without cyanosis, clubbing or edema. VITAL SIGNS: Stable. Temperature is 98.8, pulse is 80 and blood pressure is 125/93. ASSESSMENT: I will defer to Dr. Arrington for possible discharge versus discharge against medical advice. I will follow up with the patient as an outpatient. Eugene Alexis MD
--- NOTE | 2017-11-21 15:44 | PCM.PSYCH ---
Initial Psychiatric Evaluation - Initial Psychiatric Evaluation Type of Admission: Voluntary Legal Status: Capacity (patient has capacity to sign consent for treatment) Chief Complaint (in patient's own words): 'I'm glad that I'm alive, I learned a lot from this admission, everybody is nice, but I do want to come here ever". Patient's Reaction to Hospitalization: patient was transferred from medical floor where she was admitted s/p overdose on flexeril, r/o suicidal attempt, pt was medically stabilized in ICU, then med floor, then transferred to the psych unit, transfer was uneventful. History of Present Illness and Precipitating Events: Shortly patient is 27 year old female with reported history of depression and anxiety, questionable attention deficit disorder, no reported history of psychiatric hospitalizations, currently under psychiatric treatment with , on the Vyvanse 50 mg daily, patient initially was admitted to ICU status post overdose on her ex-boyfriends Flexeril, psych consult was called for evaluation of depressive symptoms and possible suicidal attempt, please see Dr. Reddy's notes for more detailed information. patient subsequently was downgraded to the medical side, patient offered psychiatric admission, patient was willing to get better, was transferred to the psychiatric inpatient unit on November 20 uneventfully. Obviously patient failed outpatient treatment and requires further evaluation and stabilization and medication adjustment into the psychiatric inpatient unit. Patient was seen and examined today at the treatment team meeting, personal hygiene is marginal, good ADLs, patient appears to be depressed, flat affect, patient seems to be mood historian, patient reported that she learned from this admission that she does not want to come back to the psychiatric inpatient unit after, reported that she slept well, reported no side effects from medications which was initiated on the medical side. going back to the time of admission patient reported that she had body with her girlfriends on last Monday, patient reported that she was intoxicated, was feeling depressed and overwhelmed, at the time when she came back home she was not able to fall asleep, she took 2 of her ex-boyfriend Flexeril is an older to fall asleep, after a couple of minutes patient decided to took all Flexeril what have left, indicated that hand all,, at least 10 pills, patient outreach for her girlfriend who subsequently called patient mother and patient was brought to the hospital, patient saidthat she never wanted to but she wanted to sleep as well as "shut my mind", patient reported that she was overwhelmed with her miscarriage last month,also breakup with her boyfriend, feeling overwhelmed at work. at present moment patient reported that she is happy to be alive, patient wants to get better, denied any intent or plan to kill herself. Patient denied hearing voices denied seeing things denied paranoid ideations, patient does not present to be psychotic. Patient reports that that time she feels anxious, denied panic attacks, patient is thinking about her relationship, finances, her job. Patient denied that she is using any drugs, patient reported that currently she is under care of Dr. Messina over the past 4 years, patient medication was changed from Adderall to Vyvanse 50 mg for attention deficit disorder. patient reported that she does not have history of alcohol use disorder, denied substance abuse, patient reported thatshe used to smoke but she decided to quit, nicotine patch offered, but patient declined that offer. past psychiatric history: Patient denied history of being admitted to psychiatric inpatient unit, denied history of suicidal attempts, patient was seen by Dr. Ricardo Baker in the past. Medical history:Patient had miscarriage, at present moment BHGT is elevated because "there are some tissues left I need to have D&C procedure". family history: patient denied any family history of mental illness, denied history of suicidal attempts in the family.. Patient pharmacy was contacted [facility] [phone] patient was prescribed following medication: Xanax 0.25 mg twice the patient denied that she took that medication Vyvanse 50 mg daily it was changed last week Lamotrigine 100 mg daily and 25 mg twice a day as per patient she was not compliant with that medication Patient was on Adderall in the past but last time patient felt that medication October 11 Patient was on Topamax 50 mg twice a day patient reported being compliant with that medication. Lab Results 11/21/17 08:30: Beta HCG, Quant 87.27 H 11/21/17 07:30: Fasting Glucose 85, Triglycerides 118, Cholesterol 156, LDL Cholesterol Direct 79, HDL Cholesterol 51 11/21/17 07:30: TSH 3rd Generation 1.69 Vital Signs Temp Pulse Resp BP Pulse Ox 11/21/17 07:30 98.6 F 80 20 125/93 H 11/20/17 20:37 98.4 F 73 16 119/82 100 Current Medications: Active Medications Generic Name Dose Route Start Last Admin Trade Name Freq PRN Reason Stop Dose Admin Alprazolam 0.5 mg 11/20/17 22:04 Xanax PO BID PRN Anxiety Protocol Fluoxetine HCl 10 mg 11/21/17 08:00 Prozac PO DAILY ENEDINA Zaleplon 5 mg 11/20/17 22:04 Sonata PO HS PRN Insomnia Past Psychiatric History - Past Psychiatric History Previous Treatment History: Intensive Outpatient Prior Professional Help: see HPI Prior Psychiatric Treatment: see HPI At [facility]: see HPI Duration: see HPI Nature of Treatment: see HPI Explanation of prior treatment: see HPI History of Abuse: see HPI patient denied history of any abuse in her life, denied physical, denied emotional, denied sexual abuse History of ETOH/Drug Use: denied History of Family Illness: denied Pertinent Medical Hx (Current Medical&Sleep Prob, Allergies): Allergies Allergy/AdvReac Type Severity Reaction Status Date / Time apple Allergy ANGIOEDEMA Verified 11/20/17 22:00 ORANGE Allergy ANGIOEDEMA Verified 11/20/17 22:00 peach Allergy ANGIOEDEMA Verified 11/20/17 22:00 Albuterol HFA [Ventolin HFA 90 mcg/actuation (8 g)] 1 puff INH PRN PRN 11/18/17 Amphetamine Salt Combination [Adderall] 5 mg PO DAILY 11/18/17 Albuterol/Ipratropium [Duoneb 3 mg/0.5 mg (3 ml) UD] 3 ml IH [id number] PRN neb 11/20/17 FLUoxetine [Prozac] 10 mg PO DAILY cap 11/20/17 Folic Acid 1 mg PO DAILY tab 11/20/17 Pantoprazole [Protonix EC Tab] 40 mg PO 0600 ect 11/20/17 Thiamine [Vitamin B1 Tab] 100 mg PO DAILY tab 11/20/17 Review of Systems - Review of Systems Systems not reviewed;Unavailable: Acuity of Condition - EENT Eyes: As Per HPI Ears: As Per HPI Nose/Mouth/Throat: As Per HPI - Breasts Breasts: As Per HPI - Cardiovascular Cardiovascular: As Per HPI - Respiratory Respiratory: As Per HPI - Gastrointestinal Gastrointestinal: As Per HPI - Genitourinary Genitourinary: As Per HPI - Reproductive: Female Reproductive:Female: As Per HPI - Menstruation Menstruation: As Per HPI - Musculoskeletal Musculoskeletal: As Par HPI - Integumentary Integumentary: As Per HPI - Neurological Neurological: As Per HPI - Psychiatric Psychiatric: As Per HPI - Endocrine Endocrine: As Per HPI - Hematologic/Lymphatic Hematologic: As Per HPI Mental Status Examination - Personal Presentation Personal Presentation: Looks stated age - Affect Affect: Constricted, Flat - Motor Activity Motor Activity: Psychomotor Retardation - Reliability in Providing Information Reliability in Providing Information: Fair - Speech Speech: Organized - Mood Mood: Depressed - Formal Thought Process Formal Thought Process: No Impairment - Obsessions/Compulsions Obsessions: None Compulsions: None - Cognitive Functions Orientation: Person, Place, Situation, Time Sensorium: Alert Abstract Thinking: As evidence by abstract perception of proverbs Estimate of Intelligence: Average Judgement: Intact, as evidence by: Insight regarding need for hospitalization - Risk Risk: Self-mutilation, Diminished functioning - Strength & Assets Inventory Strength & Assets Inventory: Intelligence, Family support, Education, Employment status, Employment history, Cooperative - Limitations Limitations: Other (multiple stressors) DSM 5 DX - DSM 5 DSM 5 Diagnosis: rule out major depressive disorder Rule out adjustment disorder with depressed and anxious mood Rule out attention deficit disorder - Recommended/Plan of Treatment Treatment Recommendations and Plan of Treatment: Milieu/structure/supportive therapy Medical consult SW consultation for discharge plan and social issues Med management treatment plan was discussed in details, patient is willing to discontinue Prozac, Wellbutrin was discussed in details, it would be helpful for depression as well as for attention deficit disorder as well as for nicotine addiction Patient does not want to continue Lamictal Topamax will be resumed 50 mg twice a day Sonata 5 mg at the nighttime for insomnia Family involvement Follow up on labs Will monitor closely Pt was educated about risk/benefits and alternatives of medications, coping strategies (safety plan, suicide prevention), relapse prevention, importance of follow up with psychiatrist and therapist, stay away from drugs/alcohol/smoking Projected ELOS: 5days Prognosis: fair Discharge Plan and Discharge Criteria: Pt will be not depressed or manic, will be more hopeful, will be not psychotic or anxious, will be not having thoughts of harming self or others, will be tolerating medications well, will not have major side effects, will be able to function, will not pose threat to self or others. - Smoking Cessation Smoking Cessation Initiated: Yes Reason for not providing: wellbutrin
--- NOTE | 2017-11-22 10:04 | PN ---
DATE: 11/22/2017 A 27-year-old white female seen in the psych unit under care of Dr. Arrington. Patient is more awake and alert and oriented x3 today. She is ambulating. She is sitting with the staff with the residents of psych unit having breakfast. She expressed to me that she most likely will be going home tomorrow. As per Dr. Arrington, she is status post Flexeril and alcohol overdose and recent history of miscarriage. Patient is awake and alert. Seems more appropriate and anxious to be released, but calm and has no more thought content. Physical examination is unchanged. Eugene Alexis MD
--- NOTE | 2017-11-22 16:37 | PCM.PYCHPN ---
Psychiatric Progress Note - Psychiatric Progress Note Patient seen today, length of contact: 30 minutes Patient Chief Complaint: 'I'm glad that I'm alive, in looking forward for outpatient treatment and family sessions with my boyfriend". Problems Identified/Issues Discussed: Suicide/ homicide prevention, past psychiatric h/o, current psychiatric symptoms, medical problems, risk/benefits and alternatives of medications, medications compliance, coping strategies, substance abuse h/o, relapse prevention, importance of follow up with psychiatrist and therapist, discharge plan. Medical Problems: see HPI Diagnostic Results: Lab Results 11/21/17 08:30: Beta HCG, Quant 87.27 H 11/21/17 07:30: Fasting Glucose 85, Triglycerides 118, Cholesterol 156, LDL Cholesterol Direct 79, HDL Cholesterol 51 11/21/17 07:30: RPR Nonreactive 11/21/17 07:30: TSH 3rd Generation 1.69 Vital Signs Temp Pulse Resp BP Pulse Ox 11/22/17 07:33 98.3 F 73 20 129/92 H 11/21/17 16:00 70 114/80 11/21/17 07:30 98.6 F 80 20 125/93 H 11/20/17 20:37 98.4 F 73 16 119/82 100 please see medical admission lab results DSM 5 Symptoms Update: Shortly patient is 27 year old female with reported history of depression and anxiety, questionable attention deficit disorder, no reported history of psychiatric hospitalizations, currently under psychiatric treatment with , on the Vyvanse 50 mg daily, patient initially was admitted to ICU status post overdose on her ex-boyfriends Flexeril, psych consult was called for evaluation of depressive symptoms and possible suicidal attempt, please see Dr. Reddy's notes for more detailed information. patient subsequently was downgraded to the medical side, patient offered psychiatric admission, patient was willing to get better, was transferred to the psychiatric inpatient unit on November 20 uneventfully. Obviously patient failed outpatient treatment and requires further evaluation and stabilization and medication adjustment into the psychiatric inpatient unit. patient was seen at the treatment team meeting, hygiene is much better, patient affect was more reactive. Patient reports that she tolerates medications well, denied side effects, aims 0, no EPS. Patient reported that she slept well. Patient reports that she is looking forward for couples sessions with her boyfriend, patient is more hopeful for the future. As per social work collateral information from the mother mother did not feel that patient wanted to kill herself or wanted to harm himself intentionally. Patient requested to be discharged tomorrow, patient agreed with follow-up appointment with psychiatrist. as per staff patient started to participate in groups, visible in the unit. Impression: Rule out adjustment disorder with depressed and anxious mood Rule out major depressive disorder As per history questionable ADHD Medication Change: Yes (Wellbutrin increased) Medical Record Reviewed: Yes Consults ordered or reviewed: patient was seen by medical team on the medical side, was cleared Mental Status Examination - Cognitive Function Orientation: Person, Place, Situation, Time Memory: Intact Attention: Poor (some improvement) Concentration: Poor (mprovement) Association: WNL Fund of Knowledge: WNL - Mood Mood: Depressed ("I feel better) - Affect Affect: Constricted (but was more reactive and mood congruent) - Speech Speech: Appropriate - Formal Thought Process Formal Thought Process: No Impairment - Suicidal Ideation Suicidal Ideation: No - Homicidal Ideation Homicidal Ideation: No Goal/Treatment Plan - Goal/Treatment Plan Need for Continued Stay: Remain at risks for inpatient hospitalization, Severe depression anxiety, Discharge may exacerbated symptoms, Severe functional impairment Progress Toward Problem(s) and Goals/Treatment Plan: Milieu/structure/supportive therapy Medical consult SW consultation for discharge plan and social issues Med management Wellbutrin 100 mg twice a day for depression as well as ADHD Patient does not want to continue Lamictal Topamax will be resumed 50 mg twice a day Sonata 5 mg at the nighttime for insomnia Family involvement Follow up on labs Will monitor closely Pt was educated about risk/benefits and alternatives of medications, coping st rategies (safety plan, suicide prevention), relapse prevention, importance of follow up with psychiatrist and therapist, stay away from drugs/alcohol/smoking Estimated Date of D/C: 11/23/17
[2017-11-23 07:28] VITALS: BP 118/81; PULSE 63; TEMP 98
--- NOTE | 2017-11-23 17:17 | PCM.PYCHDC ---
Mental Status Examination - Mental Status Examination Orientation: Person, Place, Situation, Time Memory: Intact Mood: Neutral Affect: Broad (and mood congruent) Speech: Appropriate Attention: WNL Concentration: WNL Association: WNL Fund of Knowledge: WNL Formal Thought Process: No Impairment Description of patient's judgement and insight: Pt has improved insight into mental and medical illness, pt was compliant with medications and unit rules and regulations, pt was going to groups, was calm, cooperative, socially appropriate, no behavioral incidents, no agitation, no aggression. Psychotic Thoughts and Behaviors: Pt denied v/a/t hallucinations, denied paranoid ideations, pt does not appear to be psychotic, and thought process is goal directed. Suicidal Ideation: No Current Homicidal Ideation?: No Plan: pt adamantly denied thoughts of harming self or others denied intent or plan. Discharge Summary - Discharge Note Reason for Hospitalization: patient was transferred from medical floor where she was admitted s/p overdose on flexeril, r/o suicidal attempt, pt was medically stabilized in ICU, then med floor, then transferred to the psych unit, transfer was uneventful. Psychiatric History (includes Medical, Family, Personal Hx): see HPI Laboratory Data: Lab Results 11/21/17 08:30: Beta HCG, Quant 87.27 H 11/21/17 07:30: Fasting Glucose 85, Triglycerides 118, Cholesterol 156, LDL Cholesterol Direct 79, HDL Cholesterol 51 11/21/17 07:30: RPR Nonreactive 11/21/17 07:30: TSH 3rd Generation 1.69 Vital Signs Temp Pulse Resp BP Pulse Ox 11/23/17 07:26 98 F 63 20 118/81 11/22/17 16:00 90 113/79 11/22/17 07:33 98.3 F 73 20 129/92 H 11/21/17 16:00 70 114/80 11/21/17 07:30 98.6 F 80 20 125/93 H 11/20/17 20:37 98.4 F 73 16 119/82 100 Consultations:: List each consultation separately and include: 1. Reason for request. 2. Findings. 3. Follow-up Consultations: patient was seen by medical team on the medical side, was cleared Summary of Hospital Course include:: 1. Description of specific treatment plan utilized for patients during their course of treatmen. 2. Summarize the time- course for resolution of acute symptoms and/or regressed behaviors. 3. Describe issues identified and worked on during hospitalization. 4. Describe medication utilized. 5. Describe medical problems identified and treated. 6. Reassessment of suicide risk Summary of Hospital Course: Shortly patient is 27 year old female with reported history of depression and anxiety, questionable attention deficit disorder, no reported h istory of psychiatric hospitalizations, currently under psychiatric treatment with , on the Vyvanse 50 mg daily, patient initially was admitted to ICU status post overdose on her ex-boyfriends Winstoneril, psych consult was called for evaluation of depressive symptoms and possible suicidal attempt, please see Dr. Reddy's notes for more detailed information. patient subsequently was downgraded to the medical side, patient offered psychiatric admission, patient was willing to get better, was transferred to the psychiatric inpatient unit on November 20 uneventfully. Obviously patient failed outpatient treatment and requires further evaluation and stabilization and medication adjustment into the psychiatric inpatient unit. Patient initially presented with marginal personal hygiene, good ADLs, patient appears to be depressed, flat affect, patient seems to be good historianplease see admission note for more detailed information Lab Results 11/21/17 08:30: Beta HCG, Quant 87.27 H 11/21/17 07:30: Fasting Glucose 85, Triglycerides 118, Cholesterol 156, LDL Cholesterol Direct 79, HDL Cholesterol 51 11/21/17 07:30: TSH 3rd Generation 1.69 Vital Signs Temp Pulse Resp BP Pulse Ox 11/21/17 07:30 98.6 F 80 20 125/93 H 11/20/17 20:37 98.4 F 73 16 119/82 100 patient was stabilized on the following medication: Wellbutrin extended release 150 mg a day for depression as well as ADHD Topamax 50 mg twice a day for mood stabilization and losing weight Sonata 5 mg at the nighttime for insomnia patient tolerated medications well no side effects observed or reported, aims 0, no EPS Collateral information from mother obtained by social services coordinator, patient mother does not believe that patient wanted to kill herself, patient mother expressed no concerns about patient discharge, please see social services coordinator notes for more detailed information. Over the course of this hospitalization pt was attending groups, pt also had medication management, had therapeutic milieu. Overall pt improved significantly, pt's affect became brighter, pt was less depressed, has realistic future oriented plans, pt also does not appear to be psychotic, or anxious, pt was socially appropriate, no behavioral issues, pts insight improved as well and soon pt deemed to be ready for discharge. At the time of the discharge pt denied been depressed, denied thoughts of harming self or others, denied psychotic symptoms, and pt does not appeared to be psychotic, denied been anxious, pt is not in imminent danger to self or others, pt was provided with follow-up appointment that Dr. Ricardo Singh, information about follow up appointment, time and address provided to the pt, it is patient responsibility to follow up with outpatient clinic, PMD as well as specialists (see note for more detailed information). In case pt will need to obtain results of studies pending at discharge pt was provided with contact information of Psychiatric Inpatient unit [phone] as well as Medical Record Department [phone]. Naltrexone treatment not indicated at this time. Counseling about smoking and alcohol cessation provided smoking cessation treatment program information was provided by the pt was provided with prescriptions for all of medications (please see medication reconciliation form) Pt was educated about safety plan in case of worsening of symptoms or in case of suicidal or homicidal ideation call 911 or go to the nearest ER, also was educated to take meds as prescribed and stay away from drugs, pt verbalized understanding. - Diagnosis (1) MDD (major depressive disorder) Status: Chronic Priority: High - Final Diagnosis (DSM 5) Condition upon Discharge: GOOD Disposition: HOME/ ROUTINE Follow-up Treatment Plan: At the time of the discharge pt denied been depressed, denied thoughts of harming self or others, denied psychotic symptoms, and pt does not appeared to be psychotic, denied been anxious, pt is not in imminent danger to self or others, pt was provided with follow-up appointment that Dr. Ricardo Singh, information about follow up appointment, time and address provided to the pt, it is patient responsibility to follow up with outpatient clinic, PMD as well as specialists (see note for more detailed information). In case pt will need to obtain results of studies pending at discharge pt was provided with contact information of Psychiatric Inpatient unit [phone] as well as Medical Record Department [phone]. Naltrexone treatment not indicated at this time. Counseling about smoking and alcohol cessation provided smoking cessation treatment program information was provided by the pt was provided with prescriptions for all of medications (please see medication reconciliation form) Pt was educated about safety plan in case of worsening of symptoms or in case of suicidal or homicidal ideation call 911 or go to the nearest ER, also was educated to take meds as prescribed and stay away from drugs, pt verbalized understanding. Prescriptions/Medication Reconciliation: buPROPion XL [Wellbutrin] 150 mg PO DAILY #14 t24 Topiramate [Topamax] 50 mg PO BID #30 tab Zaleplon [Sonata] 5 mg PO HS PRN #14 cap PRN Reason: Insomnia - Smoking Cessation Smoking Cessation Medication prescribed: No Reason for not providing: pt refused - Antipsychotic Medications Pt discharged on 2 or more routine antipsychotic medications: No
--- NOTE | 2017-11-24 08:26 | PN ---
DATE: 11/23/2017 A 27-year-old white female, seen in Psychiatry Unit under the care of Dr. Arrington. The patient is markedly improved. After discussion with Dr. Arrington, she will be discharged home today. She will follow up with as an outpatient. We will suggest him family counseling. The patient is awake, alert and oriented x3. She is no longer have any signs or symptoms of being suicidal or homicidal or any danger to herself or to others. She will be followed as an outpatient. We will follow up with Psychiatry as an outpatient. Continue on medication. Eugene Alexis MD
== END 2017-11-23 13:55 | disposition home or self-care (01) | DRG 881 ==
LOC: PSYC 20:37
PROVIDERS: ADMIT Psychiatry & Neurology Psychiatry; ATTEND Psychiatry & Neurology Psychiatry
DX: F32.9 Major depressive disorder, single episode, unspecified (principal); F90.9 Attention-deficit hyperactivity disorder, unspecified type; Z91.5 Personal history of self-harm